=== PATIENT | male | born 1970 ===

== ENCOUNTER 2017-10-29 12:46 | Emergency (ER) | payer BC ==
[2017-10-29] MEDS ORDERED: predniSONE TAB* 20 MG PO ONE (13:41)
--- NOTE | 2017-10-29 13:41 | UC ---
Allergic Reaction HPI - HPI Summary HPI Summary: PT TOOK A FLEXERIL 10MG ABOUT 4AM FOR MUSCLE SPASM. AT 6AM HAD ABDOMINAL PAIN, LOOSE STOOL, HIVES, ITCHING AND TONGUE/LIP SWELLING. TOOK 50MG BENADRYL WITH SIGNIFICANT IMPROVEMENT. CAME IN BECAUSE AFTER 6HRS HIS TONGUE IS STILL A BIT SWOLLEN. NO AIRWAY COMPROMISE. HIVES AND ABDOMINAL PAIN ARE RESOLVED. PT REPORTS HE GETS SIMILAR SX ABOUT ONCE PER MONTH. 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 HAS TAKEN FLEXERIL BEFORE WITHOUT ISSUE. . - History of Current Complaint Chief Complaint: UCAllergicReaction Stated Complaint: HIVES Time Seen by Provider: 10/29/17 13:27 Hx Obtained From: Patient Onset/Duration: Sudden Onset, Lasting Hours, Still Present Severity Initially: Moderate Severity Currently: Mild Pain Intensity: 0 Pain Scale Used: 0-10 Numeric Location: Diffuse Character: Swelling, Hives Alleviating Factor(s): Antihistamines Associated Signs And Symptoms: Positive: Rash. Negative: Abdominal Pain, Chest Pain, Cough Wheezing, Difficulty Breathing, Nausea, Syncope, Throat Tightening - Allergies/Home Medications Allergies/Adverse Reactions: Allergies Allergy/AdvReac Type Severity Reaction Status Date / Time No Known Allergies Allergy Verified 10/29/17 13:15 Home Medications: Home Medications Benadryl PO 25 MG TAB* 25 mg PO PRN 10/29/17 [History] Cyclobenzaprine TAB* [Flexeril 10 MG TAB*] 10 mg PO PRN 10/29/17 [History] PMH/Surg Hx/FS Hx/Imm Hx Cardiovascular History: Hypertension - Surgical History Surgical History: Yes - Family History Known Family History: Positive: Hypertension - Social History Alcohol Use: Occasionally Substance Use Type: None Smoking Status (MU): Never Smoked Tobacco - Immunization History Most Recent Influenza Vaccination: 2015 Most Recent Tetanus Shot: up to date Review of Systems Constitutional: Negative Skin: Negative ENT: Other - TONGUE SWOLLEN Respiratory: Negative Cardiovascular: Negative Gastrointestinal: Negative All Other Systems Reviewed And Are Negative: Yes Physical Exam Triage Information Reviewed: Yes Appearance: Well-Appearing, No Pain Distress, Well-Nourished Vital Signs: Initial Vital Signs Temp 98.0 F 10/29/17 13:19 Pulse 79 10/29/17 13:19 Resp 17 10/29/17 13:19 BP 141/90 10/29/17 13:19 Pulse Ox 98 10/29/17 13:19 Vital Signs Reviewed: Yes Eyes: Positive: Conjunctiva Clear ENT: Positive: Hearing grossly normal, Pharynx normal, TMs normal, Uvula midline - NO UVULAR EDEMA, Other - TONGUE MILDLY SWOLLEN Neck: Positive: Supple, Nontender, No Lymphadenopathy Respiratory Exam: Normal Cardiovascular Exam: Normal Abdomen Description: Positive: Soft Musculoskeletal: Positive: No Edema Neurological: Positive: Alert Psychological: Positive: Age Appropriate Behavior Skin: Negative: rashes Allergic Reaction Course/Dx - Course Course Of Treatment: PT DECLINES RX FOR EPIPEN TODAY. LIVES IN [place]. STATES HE WILL F/U WITH HIS PCP WHEN HE GETS HOME AND DISCUSS EVAL BY AN SALES REPRESENTATIVE [employer]. TO ER WITHOUT FAIL IF SX WORSEN. TX WITH PREDNISONE AND ANTIHISTAMINES. - Differential Dx/Diagnosis Provider Diagnoses: ALLERGIC REACTION/ANGIOEDEMA Discharge - Discharge Plan Condition: Stable Disposition: HOME Prescriptions: predniSONE TAB* [Deltasone TAB*] 40 mg PO DAILY #8 tab Patient Education Materials: General Allergic Reaction (ED) Referrals: Non Staff,Doctor [Primary Care Provider] - Additional Instructions: TAKE PREDNISONE DAILY. TAKE OTC ANTIHISTAMINE DAILY (CLARITIN (LORATADINE), ZYRTEC (CETIRIZINE) OR DONI (FEXOFENADINE) IN THE MORNING, 25-50MG BENADRYL AT NIGHT) GO TO THE ER WITHOUT FAIL IF YOU DEVELOP SHORTNESS OF BREATH, WORSENING TONGUE/ LIP SWELLING, RASH OR ANY OTHER CONCERNING SYMPTOMS. CONSIDER FOLLOWING UP WITH AN SALES REPRESENTATIVE [employer] WHEN YOU GET BACK TO [place] FOR EVALUATION OF YOUR RECURRENT ALLERGIC SYMPTOMS.
== END 2017-10-29 13:53 | disposition home or self-care (01) ==
LOC: UCEAST 12:46
DX: T78.3XXA Angioneurotic edema, initial encounter (principal); T48.1X5A Adverse effect of skeletal muscle relaxants [neuromuscular blocking agents], initial encounter; Y92.9 Unspecified place or not applicable; Z72.89 Other problems related to lifestyle
CPT/HCPCS: 99202; G0463; J7512